=== PATIENT | male | born 2000 | race Caucasian/White ===

== ENCOUNTER 2021-04-26 15:43 | Emergency (ER) | payer OTHER ==
[~2021-04-26] VITALS: Ht 177.8 cm; Wt 77.3 kg
[2021-04-26 16:14] VITALS: BP 116/73; TEMP 98.3
[2021-04-26 18:10] VITALS: PULSE 86
== END 2021-04-26 18:10 | disposition home or self-care (01) ==
LOC: COL.ER 15:43
DX: S93.401A Sprain of unspecified ligament of right ankle, initial encounter (principal); X50.1XXA Overexertion from prolonged static or awkward postures, initial encounter; Y93.51 Activity, roller skating (inline) and skateboarding